=== PATIENT | female | born 1935 ===

== ENCOUNTER 2017-09-21 07:57 | Day surgery (SDC) | payer MEDICARE ==
[2017-09-21] MEDS ORDERED: Lactated Ringer's 500 ML IV ONE (08:20)
[2017-09-21 08:40] VITALS: TEMP 97.2
[2017-09-21] MEDS ORDERED: Etomidate 20 mg/10ml Inj IV ONE (09:47)
[2017-09-21] MEDS ORDERED: Midazolam 2 MG/2 ML VIAL ONE (09:48)
[2017-09-21] MEDS ORDERED: Propofol 10 mg/ml Inj (20 ML) ONE (09:48)
[2017-09-21 10:12] VITALS: O2SAT 100
[2017-09-21 10:30] VITALS: BP 154/59; PULSE 69; RESP 18
== END 2017-09-21 10:42 | disposition home or self-care (01) ==
LOC: H.ENDO 07:57
PROVIDERS: ATTEND Internal Medicine Gastroenterology
DX: R10.84 Generalized abdominal pain (principal); I25.10 Atherosclerotic heart disease of native coronary artery without angina pectoris; E11.9 Type 2 diabetes mellitus without complications; E78.5 Hyperlipidemia, unspecified; I10 Essential (primary) hypertension; K64.8 Other hemorrhoids
CPT/HCPCS: 45378; J2250; J2704; J7120